=== PATIENT | female | born 2000 | race Two or more races ===

== ENCOUNTER 2019-06-13 18:52 | Emergency (ER) | payer MEDICAID ==
[~2019-06-13] VITALS: Ht 157.5 cm; Wt 86.2 kg
[2019-06-13] MEDS ORDERED: ACETAMINOPHEN 325 MG TAB PO ONE ×2 (19:01→19:15)
[2019-06-13 22:13] VITALS: BP 120/83
== END 2019-06-13 22:46 | disposition home or self-care (01) ==
LOC: ER 18:52
DX: J03.90 Acute tonsillitis, unspecified (principal)

== ENCOUNTER 2022-02-07 13:26 | Emergency (ER) | payer MEDICAID ==
[~2022-02-07] VITALS: Ht 157.5 cm; Wt 108.0 kg
[2022-02-07 15:13] LABS: Basophils # (auto) 0.1 10 ^3/uL (0-0.2); Basophils % (auto) 0.7 % (0.0-2.0); Eosinophils # (auto) 0.1 10 ^3/uL (0-0.8); Hematocrit 39.1 % (36.0-46.0); Hemoglobin 13.7 g/dL (12.2-16.2); Mean Corpuscular Hemoglobin 29.4 pg (28.0-32.0); Nucleated Red Blood Cells % 0.1 %
[2022-02-07 15:14] LABS: Lymphocytes % (auto) 27.3 % (10.0-50.0); Mean Corpuscular Volume 84.2 fL (80.0-100.0); Monocytes # (auto) 0.6 10 ^3/uL (0-1.3); Monocytes % (auto) 5.9 % (0.0-12.0); Neutrophils # (auto) 7.1 10 ^3/uL (1.6-8.6); Neutrophils % (auto) 65.1 % (37.0-80.0); Red Blood Cells 4.64 10^6/uL (4.0-5.20); Red Cell Distribution Width 13.1 % (11.8-14.3); White Blood Cell 10.8 10^3/uL (4.4-10.8)
[2022-02-07 15:28] LABS: INR 1.04 (0.9-1.15); Partial Thromboplastin Time 25.4 sec (23.6-33.0)
[2022-02-07 15:35] LABS: Albumin 3.9 g/dL (3.4-5.0); Calcium 9.2 mg/dL (8.5-10.1); Potassium 3.5 mmol/L (3.5-5.1)
[2022-02-07 15:37] LABS: Bilirubin, Total 0.4 mg/dL (0.2-1.0); Total Protein 8.3 g/dL (6.4-8.2)
[2022-02-07 16:30] VITALS: BP 120/75
[2022-02-07 16:37] LABS: Urine Bacteria NONE SEEN /hpf (None Seen); Urine Blood 3+ /uL (Negative); Urine Mucus FEW (None Seen); Urine Specific Gravity 1.034 (1.001-1.035); Urine WBC 62 /hpf (0 - 5)
[2022-02-07] MEDS ORDERED: CEPH-322 PO (16:55)
== END 2022-02-07 17:14 | disposition home or self-care (01) ==
LOC: ER 13:30
DX: N39.0 Urinary tract infection, site not specified (principal); N93.8 Other specified abnormal uterine and vaginal bleeding; Z32.02 Encounter for pregnancy test, result negative
CPT/HCPCS: 36415; 80053; 81001; 81025; 85025; 85610; 85730; 86850; 86900; 86901